=== PATIENT | male | born 1960 | race Caucasian/White ===

== ENCOUNTER 2025-08-12 16:58 | Emergency (ER) | payer OTHER, BC ==
[~2025-08-12] VITALS: Ht 180.3 cm; Wt 90.7 kg
[2025-08-12] MEDS ORDERED: TAMS.4ER PO (17:45)
== END 2025-08-12 19:00 | disposition home or self-care (01) ==
LOC: ER 16:58
DX: S00.11XA Contusion of right eyelid and periocular area, initial encounter (principal); S80.01XA Contusion of right knee, initial encounter; V58.5XXA Driver of pick-up truck or van injured in noncollision transport accident in traffic accident, initial encounter
CPT/HCPCS: 70450; 72170; 73562-RT; 99284-25